=== PATIENT | female | born 1990 | race Caucasian/White ===

== ENCOUNTER 2017-10-27 18:56 | Emergency (ER) | payer OTHER ==
[2017-10-27 19:01] VITALS: PULSE 101; RESP 16; TEMP 97.9; O2SAT 99
[2017-10-27 19:02] VITALS: BP 114/57
--- NOTE | 2017-10-27 19:07 | ED PDOC ---
HPI: Trauma/Fall - HPI Time Seen by Provider: 10/27/17 19:01 Chief Complaint (Nursing): Back Pain Chief Complaint (Provider): back pain History Per: Patient History/Exam Limitations: no limitations Onset/Duration Of Symptoms: Hrs (x1) Additional Complaint(s): 27 year old female, currently 11 weeks , who presents to the emergency department via EMS for an evaluation of lower back pain status post slipping on ice in front of her job 1 hour prior to arrival. Denied any head injury, loss of consciousness, abdominal pain, vaginal bleeding or taking any pain medication. Patient stated she has a pending ultrasound with OB doctor on . LMP: 08/10/17 PMD: none provided Past Medical History Reviewed: Historical Data, Nursing Documentation, Vital Signs Vital Signs: Last Vital Signs Temp 97.9 F 10/27/17 18:58 Pulse 101 H 10/27/17 18:58 Resp 16 10/27/17 18:58 BP 114/57 L 10/27/17 19:01 Pulse Ox 99 10/27/17 19:25 - Family History Family History: States: Unknown Family Hx - Allergies Allergies/Adverse Reactions: Allergies Allergy/AdvReac Type Severity Reaction Status Date / Time No Known Allergies Allergy Verified 10/27/17 18:58 Review of Systems ROS Statement: Except As Marked, All Systems Reviewed And Found Negative Gastrointestinal: Negative for: Abdominal Pain Genitourinary Female: Negative for: Vaginal Bleeding Musculoskeletal: Positive for: Back Pain (lower) Neurological: Negative for: Other (head injury or LOC) Physical Exam - Reviewed Nursing Documentation Reviewed: Yes Vital Signs Reviewed: Yes - Physical Exam Appears: Positive for: Well, Non-toxic, No Acute Distress Head Exam: Positive for: ATRAUMATIC, NORMAL INSPECTION, NORMOCEPHALIC Skin: Positive for: Normal Color Eye Exam: Positive for: Normal appearance ENT: Positive for: Normal ENT Inspection Neck: Positive for: Normal, Painless ROM Cardiovascular/Chest: Positive for: Regular Rate, Rhythm, Chest Non Tender Respiratory: Positive for: Normal Breath Sounds. Negative for: Decreased Breath Sounds, Respiratory Distress Back: Positive for: Vertebral Tenderness (tailbone). Negative for: L CVA Tenderness, R CVA Tenderness Neurologic/Psych: Positive for: Alert, Oriented - ECG O2 Sat by Pulse Oximetry: 99 (RA) Pulse Ox Interpretation: Normal Medical Decision Making Medical Decision Making: Initial Impression: Back pain S/P fall; tailbone fracture Initial Plan: * Tylenol 975mg PO * OB US Time: 1905 --Provider attempted to examine patient --Patient refused to get off phone call Scribe Attestation: Documented by Donna Amaro, acting as a scribe for Sepideh Salvador PA-C. Provider Scribe Attestation: All medical record entries made by the Scribe were at my direction and personally dictated by me. I have reviewed the chart and agree that the record accurately reflects my personal performance of the history, physical exam, medical decision making, and the department course for this patient. I have also personally directed, reviewed, and agree with the discharge instructions and disposition. Disposition - Clinical Impression Clinical Impression: Fall, Back pain - Patient ED Disposition Is Patient to be Admitted: No Counseled Patient/Family Regarding: Diagnosis, Need For Followup - Disposition Disposition: Routine/Home Disposition Time: 19:54 Condition: GOOD Additional Instructions: Tylenol may be taken for pain in . Instructions: Fall Prevention (ED) Forms: [employer] (Hungarian)
--- NOTE | 2017-10-28 15:47 | US ---
PROCEDURE: OB Pelvic Ultrasound HISTORY: fall, back pain COMPARISON: None available. FINDINGS: Transabdominal technique was utilized in sagittal and transverse views. UTERUS: There is a small sac within the endometrial cavity with mean sac diameter measuring 5.2 cm. pole yolk sac are identified with a mean crown-rump length measurement of 4.3 cm correspond to 11 weeks 1 day. Lesser appears reported 08/10/2017 suggesting 11 per week 1 day gestational age which agrees exactly with estimated ultrasound gestational age. cardiac activity is recorded 158 beats per minute decidual reaction appears unremarkable with an anterior fundal placenta apparent be developing. No decidual hemorrhage is seen related. Estimated date of delivery is 05/17/2018. Uterus is enlarged and anteverted measuring 9.5 x 8.5 x 8.0 cm. Neither ovary is identified in this transabdominal examination. CERVIX: Long and closed. No cervical abnormality seen. FREE FLUID: None. OTHER FINDINGS: None. IMPRESSION: Single viable intrauterine gestation identified within the endometrial cavity with average aunt age 11 weeks 1 day which agrees with menstrual dates as discussed above. No decidual related hemorrhage appreciable this time. Neither ovary was identified in this examination.
== END 2017-10-27 20:26 | disposition home or self-care (01) ==
LOC: H.ER 18:56
DX: O26.891 Other specified pregnancy related conditions, first trimester (principal); M54.5 Low back pain; Z36.9 Encounter for antenatal screening, unspecified; Z3A.11 11 weeks gestation of pregnancy; W00.0XXA Fall on same level due to ice and snow, initial encounter